=== PATIENT | female | born 1940 | race Caucasian/White ===

== ENCOUNTER 2016-12-17 08:19 | Inpatient (IN) | payer MEDICARE ==
[~2016-12-17] VITALS: Ht 162.6 cm; Wt 79.2 kg
[2016-12-17] MEDS ORDERED: LEVO100T5 PO (09:06)
[2016-12-17] MEDS ORDERED: VITA200012 PO (09:06)
[2016-12-17] MEDS ORDERED: BUPR150T3 PO (09:06)
[2016-12-17] MEDS ORDERED: SIMV10TA PO (09:06)
[2016-12-17] MEDS ORDERED: ALEN1TAB48 PO (09:06)
[2016-12-17] MEDS ORDERED: CALCTAB54 PO (09:06)
[2016-12-17] MEDS ORDERED: FISH100020 PO (09:06)
--- NOTE | 2016-12-23 09:40 | MH ---
cc: Bird BE M.D. DATE OF ADMISSION: 12/24/2016 ADMITTING DIAGNOSIS Osteoarthritic degeneration left knee, now being admitted for left total knee arthroplasty. HISTORY OF PRESENT ILLNESS This pleasant 76-year-old female is being admitted today for osteoarthritic degeneration left knee, now scheduled for left total knee arthroplasty. PAST MEDICAL HISTORY 1. Right total knee done in the past. 2. Arthritis. 3. Thyroid problems. MEDICATIONS Current medications include: 1. Levoxyl. 2. Bupropion. 3. Simvastatin. 4. Alendronate. 5. Vitamin-D3. PAST SURGICAL HISTORY Right total knee arthroplasty. REVIEW OF SYSTEMS Noncontributory. FAMILY HISTORY Noncontributory. SOCIAL HISTORY She does not smoke. She drinks some alcohol. ALLERGIES SULFA MEDICATIONS. PHYSICAL EXAMINATION GENERAL: We find a 76-year-old female well-developed, well-nourished, oriented x3 complaining of pain in the left knee. VITAL SIGNS: Blood pressure 136/82, pulse 65 and regular, respirations 16, temperature 97.7, pulse oximetry 98% on room air. HEENT: PERRLA. EOMI. Ears, nose and mouth clear. NECK: Supple. LUNGS: Clear. HEART: Regular rate. ABDOMEN: Soft. Positive bowel sounds. Nontender. EXTREMITIES: The left knee has crepitance on range of motion. She lacks 5 degrees short of full extension, has 90 degrees of flexion. She is neurovascularly intact to her toes. IMPRESSION The impression at this time is severe osteoarthritic degeneration left knee. PLAN The plan is admission for left total knee arthroplasty today. The patient was given a prescription for postoperative pain and anticoagulation control in the office. She plans on going home with home health care after stay in the hospital. She understands to use Hibiclens scrub and Bactroban preoperatively. JMD JEANNA Causey/RENARD /9:25 AM /9:29 AM
[2016-12-24] MEDS: CHLORHEXIDINE GLUCONATE 4% SOLN 120 ML BTL TOP SCH (06:00)
[2016-12-24] MEDS ORDERED: VANCOMYCIN 1000 MG/NS 250 ML (for <70 kg) IV SCH ×2 (06:00)
[2016-12-24 06:07] VITALS: BP 155/77; PULSE 67; RESP 20; TEMP 97.9; O2SAT 96
[2016-12-24] MEDS ORDERED: ceFAZolin 2 GM PREMIX 50 ML IV SCH (07:00)
[2016-12-24] MEDS ORDERED: ceFAZolin INJ 1,000 MG VIAL ONE (07:00)
[2016-12-24] MEDS ORDERED: MIDAZOLAM HCL 5 MG/5 ML VIAL ONE (07:06)
[2016-12-24] MEDS: BUPIVACAINE LIPOSO PF 1.3% INJ 20 ML, BUPIVACAINE PF 0.25% INJ 20 ML in SODIUM CHLORIDE... P-ARTICULR SCH ×2 (07:45→08:58)
[2016-12-24] MEDS ORDERED: ACETAMINOPHEN 1000 MG/100 ML VIAL IV ONE (07:54)
[2016-12-24] MEDS ORDERED: fentaNYL CITRATE 250 MCG/5 ML AMP ONE (07:54)
[2016-12-24] MEDS ORDERED: ONDANSETRON HCL 4 MG/2 ML VIAL ONE (07:54)
[2016-12-24] MEDS ORDERED: diphenhydrAMINE HCL 50 MG/ML VIAL ONE (07:55)
[2016-12-24] MEDS: SODIUM CHLORIDE 0.9% IV SCH ×2 (08:00→08:59)
[2016-12-24] MEDS: TRANEXAMIC ACID IV SCH ×2 (08:00→08:59)
--- NOTE | 2016-12-24 08:23 | HHI.FF ---
Face to Face Verification Diagnosis: (1) Status post total left knee replacement Physical Therapy Gait training Knee: Total knee, Protocol: Left, Gait training, Full weight bearing Canvas Knee Splint: When in bed & 2 pillows btw thighs Nursing RN: 3 days/week x 2 weeks Nursing: Tor teaching, Dressing changes Dressing Changes: Daily dressing change, 4x4s, Gauze, Paper tape I have seen patient Dorothy Drew on 12/24/16. My clinical findings support the need for the requested home health care services because: Limited ability to care for self High risk of falls I certify that my clinical findings support that this patient is homebound because: Unsteady gait/balance Bird Woody MD Dec 24, 2016 08:23
[2016-12-24] MEDS ORDERED: CPMMACHINE (08:24)
[2016-12-24] MEDS ORDERED: diphenhydrAMINE HCL 50 MG/ML VIAL IV PRN (08:30)
[2016-12-24] MEDS ORDERED: TRANEXAMIC ACID INJ 0 MG in SODIUM CHLORIDE 0.9% INJ 100 ML IV SCH (08:30)
[2016-12-24] MEDS ORDERED: Post-op Orders (for Pharmacy) MISC XX ONE (08:30)
[2016-12-24] MEDS ORDERED: ONDANSETRON HCL 4 MG/2 ML VIAL IVP PRN (08:30)
[2016-12-24] MEDS ORDERED: ACETAMINOPHEN 325 MG TAB PO PRN (08:30)
[2016-12-24] MEDS ORDERED: MORPHINE SULFATE 30 MG/30 ML PCA IV SCH (08:30)
[2016-12-24] MEDS ORDERED: TEMAZEPAM 15 MG CAP PO PRN (08:30)
[2016-12-24] MEDS ORDERED: SODIUM CHLORIDE 0.9% FLUSH 5 ML FLUSH IVF PRN (08:30)
[2016-12-24] MEDS ORDERED: ACETAMINOPHEN/HYDROcodone 325 MG/7.5 MG TAB PO PRN (08:30)
[2016-12-24] MEDS ORDERED: NALOXONE HCL 0.4 MG/ML AMP IV PRN (08:30)
[2016-12-24] MEDS ORDERED: DEXAMETHASONE SOD PHOS PF 10 MG/ML VIAL IV ONE (08:54)
[2016-12-24] MEDS ORDERED: ROPIVACAINE 0.5% PF INJ 30 ML VIAL NB ONE (08:54)
[2016-12-24] MEDS: CHOLECALCIFEROL (VIT D3) 1000 UNIT TAB PO SCH (09:00)
[2016-12-24] MEDS ORDERED: NON-FORMULARY DRUG (Omega-3 Fatty Acids (Fish Oil 1000 mg) 1 CAP) PO SCH (09:00)
[2016-12-24] MEDS: SODIUM CHLORIDE 0.9% FLUSH 5 ML FLUSH IVF SCH ×2 (09:00→20:19)
[2016-12-24] MEDS: LEVOTHYROXINE SODIUM 88 MCG TAB PO SCH (09:00)
[2016-12-24] MEDS: CALCIUM/VITAMIN D 250 MG/125 U TAB PO SCH ×2 (10:45→20:19)
[2016-12-24] MEDS ORDERED: TRANEXAMIC ACID IV SCH (11:00)
[2016-12-24] MEDS ORDERED: SODIUM CHLORIDE 0.9% IV SCH (11:00)
[2016-12-24] MEDS: LACTATED RINGER'S 1000 ML INJ 1,000 ML IV SCH ×2 (11:30→23:50)
[2016-12-24] MEDS ORDERED: DO NOT ADM ANY ANTICOAGULANT DRUGS XX PRN (11:45)
[2016-12-24] MEDS ORDERED: PROPOFOL 200 MG/20 ML AMP IV ONE (12:00)
--- NOTE | 2016-12-24 12:05 | RADRPT ---
EXAM DATE/TIME: 12/24/2016 11:31 [place] COMPARISON: No previous studies available for comparison. INDICATIONS : Post left knee arthroplasty MEDICAL HISTORY : Arthritis. SURGICAL HISTORY : Total knee replacement, right. ENCOUNTER: Initial ACUITY: 1 day PAIN SCORE: Non-responsive. LOCATION: Left Knee FINDINGS: The patient is status post left total knee replacement. The prosthesis appears to be in good positio n. There is no fracture or dislocation. CONCLUSION: 1. Status post left total knee replacement with prosthesis in good position. 2. No acute fracture or dislocation. Leo Giles MD on December 24, 2016 at 11:52 Board Certified Radiologist. This report was verified electronically.
--- NOTE | 2016-12-24 12:09 | PD.CONS ---
HPI Service [facility] Hospitalists Consult Requested By Dr. Ad Woody Reason for Consult Medical Management Primary Care Physician Rafaela Nicolas MD Diagnoses: History of Present Illness Mrs. Drew is a 76 y/o female with osteoarthritis, hyperlipidemia, hypothyroidism, and CKD stage 3. She was admitted to [facility] on 12/24/16 for elective left total knee arthroplasty with Dr. Woody. [facility] Hospitalist team was consulted to help with managing the pt chronic medical issues. The pt is seem post-operatively. Review of Systems Constitutional: DENIES: Fever, Chills Respiratory: DENIES: Cough, Shortness of breath Cardiovascular: DENIES: Chest pain, Dyspnea on Exertion Gastrointestinal: DENIES: Abdominal pain, Nausea, Vomiting Musculoskeletal: COMPLAINS OF: Joint pain Integumentary: DENIES: Rash Neurologic: DENIES: Headache Past Family Social History Past Medical History Osteoarthritis CKD, stage 3 Hyperlipidemia Hypothyroidism Depression Vitamin D deficiency Past Surgical History Right knee arthroplasty in 2013 D&C Reported Medications Calcium 500 (Frucpqe-Rvnaqbphb-Ovcgwuf D) 500-250-200 Mg-Mg-Unit Tab 1 Tab PO BID Fish Oil 1000 mg (Johnson-3 Fatty Acids) 1 Cap Cap 1 Cap PO DAILY Alendronate (Alendronate Sodium) 70 Mg Tab 70 Mg PO WEEKLY PT TAKES ON WEDNESDAY Vitamin D3 (Cholecalciferol) 2,000 Unit Tab 2,000 Units PO DAILY Simvastatin 10 Mg Tab 10 Mg PO MO,WE,FR,SUN Bupropion HCl ER 24 HR (Bupropion HCl) 150 Mg Tab 150 Mg PO DAILY Levothyroxine (Levothyroxine Sodium) 100 Mcg Tab 88 Mcg PO DAILY Allergies: Coded Allergies: Sulfa (Verified Allergy, Severe, HIVES, 12/17/16) Family History Father with hx of CHF and prostate cancer Mother with hx of COPD Social History Occasional alcohol use, 2 glasses of wine per week Hx of tobacco use, smoke 1ppd x 20 years quit in 2006 Denies any illicit drug use Physical Exam Vital Signs Vital Signs Date Time Temp Pulse Resp B/P Pulse Ox O2 Delivery O2 Flow Rate FiO2 12/24/16 11:45 14 12/24/16 06:07 97.9 67 20 155/77 96 Physical Exam GENERAL: This is a well-nourished, well-developed patient, in no apparent distress. HEENT: Atraumatic. Normocephalic. No temporal or scalp tenderness. No scleral icterus. Airway patent. NECK: Trachea midline, supple, nontender. CARDIO: Regular RESP: CTA bilaterally. No wheezes, rales, or rhonchi. ABD: +BS, soft, non-tender, nondistended. EXT: Left knee bandages are c/d/i NEURO: Awake and alert. Motor and sensory grossly within normal limits. Normal speech. Laboratory Laboratory Tests Test 12/24/16 12/24/16 06:00 09:02 Blood Type O POSITIVE Antibody Screen POSITIVE Crossmatch Leukocyte-Reduced Red Blood Cells Blood Bank Comment Antibody Identification Non-Specific Agglutinin Assessment and Plan Problem List: (1) Status post total left knee replacement Status: Acute Plan: - Pt s/p left total knee arthroplasty on 12/24/[address] Woody - Post-op pain control per Ortho - PT daily - IS - Constipation precautions - DVT prophylaxis with Lovenox (2) Hypothyroidism Status: Chronic Plan: - Cont. home meds (3) CKD (chronic kidney disease) stage 3, GFR 30-59 ml/min Status: Chronic Plan: - Monitor labs (4) Hyperlipidemia Status: Chronic Plan: - Cont. home meds Assessment and Plan Patient examined. Assessment and plan formulated with Willow Justin PA-C. I agree with the above. Willow Justin Dec 24, 2016 12:09 Ad Felder MD Dec 24, 2016 19:19
[2016-12-24] MEDS: PCA - TOTAL MG MORPHINE DELIVERED PER SHIFT SCH ×2 (14:00→22:38)
[2016-12-24 16:00] VITALS: BP 109/56; PULSE 63; RESP 18; TEMP 97.1; O2SAT 98
[2016-12-24 20:20] VITALS: BP 107/63; PULSE 67; RESP 17; TEMP 98.5; O2SAT 99
[2016-12-25] VITALS (7 sets, daily range): BP systolic 106–153; BP diastolic 51–74; PULSE 70–84; RESP 16–17; TEMP 98–99.9; O2SAT 94–98
[2016-12-25] MEDS: CHLORHEXIDINE GLUCONATE 4% SOLN 120 ML BTL TOP SCH ×2 (02:23→21:55)
[2016-12-25] MEDS: PCA - TOTAL MG MORPHINE DELIVERED PER SHIFT SCH (05:32)
[2016-12-25 06:00] LABS: HEMATOCRIT 28.5 % (35.0-46.0); REVIEW FLAG FINAL
[2016-12-25] MEDS: SODIUM CHLORIDE 0.9% FLUSH 5 ML FLUSH IVF SCH ×2 (09:00→19:37)
[2016-12-25] MEDS: ACETAMINOPHEN/HYDROcodone 325 MG/7.5 MG TAB PO PRN ×2 (09:01→19:37)
[2016-12-25] MEDS: CALCIUM/VITAMIN D 250 MG/125 U TAB PO SCH ×2 (09:01→19:37)
[2016-12-25] MEDS: CHOLECALCIFEROL (VIT D3) 1000 UNIT TAB PO SCH (09:01)
[2016-12-25] MEDS: LEVOTHYROXINE SODIUM 88 MCG TAB PO SCH (09:01)
[2016-12-25] MEDS: PRAVASTATIN SOD 20 MG TAB PO SCH (09:02)
[2016-12-25] MEDS: buPROPion HCL 150 MG SUSTAINED RELEASE TAB PO SCH (09:02)
[2016-12-25] MEDS: LACTATED RINGER'S 1000 ML INJ 1,000 ML IV SCH ×2 (09:04→19:37)
[2016-12-25] MEDS: ENOXAPARIN SODIUM 30 MG/0.3 ML SYRINGE SQ SCH ×2 (10:22→21:54)
--- NOTE | 2016-12-25 11:27 | PD.ORT.PN ---
Subjective Subjective Remarks pt having some pain in knee today. Objective Vitals Vital Signs Date Time Temp Pulse Resp B/P Pulse Ox O2 Delivery O2 Flow Rate FiO2 12/25/16 09:26 94 21 12/25/16 08:12 99.3 74 16 153/70 95 12/25/16 05:32 18 12/25/16 04:25 98.0 71 17 106/53 98 12/25/16 00:25 98.0 74 17 109/51 98 12/24/16 22:38 17 12/24/16 20:20 98.5 67 17 107/63 99 12/24/16 16:00 97.1 63 18 109/56 98 12/24/16 13:45 98.2 63 16 135/73 98 Nasal Cannula 2 12/24/16 13:00 60 16 126/73 98 Nasal Cannula 2 12/24/16 12:45 59 16 132/82 98 Nasal Cannula 2 12/24/16 12:30 59 16 135/76 98 Nasal Cannula 2 12/24/16 12:15 58 16 136/75 98 Nasal Cannula 2 12/24/16 12:00 61 16 129/76 97 Nasal Cannula 2 12/24/16 11:45 14 12/24/16 11:45 60 16 138/76 97 Nasal Cannula 2 12/24/16 11:30 62 16 145/78 92 Nasal Cannula 2 I/O 12/24/16 12/24/16 12/24/16 12/25/16 12/25/16 12/25/16 07:00 15:00 23:00 07:00 15:00 23:00 Intake Total 2485 ml 852 ml 755 ml Output Total 850 ml Balance 1635 ml 852 ml 755 ml Intake Oral 960 ml 120 ml 120 ml IV Total 525 ml 732 ml 635 ml Other 1000 ml Output Urine Total 700 ml Estimated Blood Loss 150 ml # Voids 2 1 1 # Bowel Movements 0 0 Result Diagram: 12/25/16 0500 Objective Remarks Dressing dry and intact. NV intact to toes. No calf tenderness. Assessment & Plan Ortho Post Op Day #: 1 Problem List: Assessment and Plan PT,OOB, DC RN ENT today. Plan dc to SNF on Sun. Bird Woody MD Dec 25, 2016 11:27
[2016-12-25] MEDS ORDERED: HYDR-3580 PO (11:30)
[2016-12-25] MEDS ORDERED: POLYETHYLENE GLYCOL 17 GM PKG PO PRN (11:30)
[2016-12-25] MEDS ORDERED: MAGNESIUM HYDROXIDE SUSP 30 ML CUP PO ONE (11:30)
[2016-12-25] MEDS: DOCUSATE SODIUM 100 MG CAP PO SCH (19:36)
[2016-12-25] MEDS: MULTIVITAMINS/MINERALS THERAPEUTIC TAB PO SCH (19:37)
[2016-12-26 00:10] VITALS: BP 121/57; PULSE 85; RESP 17; TEMP 100.1; O2SAT 95
[2016-12-26] MEDS: ACETAMINOPHEN/HYDROcodone 325 MG/7.5 MG TAB PO PRN ×4 (02:56→22:23)
[2016-12-26 04:15] VITALS: BP 132/53; PULSE 92; RESP 17; TEMP 99.6; O2SAT 97
[2016-12-26 05:00] LABS: HEMATOCRIT 27.8 % (35.0-46.0); REVIEW FLAG FINAL
[2016-12-26] MEDS: diphenhydrAMINE HCL 25 MG CAP PO PRN ×2 (05:41→12:54)
[2016-12-26 08:00] VITALS: BP 135/65; PULSE 85; RESP 18; TEMP 97.6; O2SAT 94
[2016-12-26] MEDS: DOCUSATE SODIUM 100 MG CAP PO SCH ×2 (08:26→19:26)
[2016-12-26] MEDS: MULTIVITAMINS/MINERALS THERAPEUTIC TAB PO SCH ×2 (08:26→19:26)
[2016-12-26] MEDS: SODIUM CHLORIDE 0.9% FLUSH 5 ML FLUSH IVF SCH ×2 (08:26→19:26)
[2016-12-26] MEDS: ENOXAPARIN SODIUM 30 MG/0.3 ML SYRINGE SQ SCH ×2 (08:26→22:23)
[2016-12-26] MEDS: buPROPion HCL 150 MG SUSTAINED RELEASE TAB PO SCH (08:27)
[2016-12-26] MEDS: CHOLECALCIFEROL (VIT D3) 1000 UNIT TAB PO SCH (08:27)
[2016-12-26] MEDS: LEVOTHYROXINE SODIUM 88 MCG TAB PO SCH (08:28)
[2016-12-26] MEDS: CALCIUM/VITAMIN D 250 MG/125 U TAB PO SCH ×2 (08:28→19:26)
[2016-12-26] MEDS ORDERED: BACITRACIN OINT 0.9 GM PKT TOP PRN (10:15)
[2016-12-26] MEDS: LACTATED RINGER'S 1000 ML INJ 1,000 ML IV SCH (10:18)
[2016-12-26 12:00] VITALS: BP 142/66; PULSE 80; RESP 16; TEMP 98.3; O2SAT 95
--- NOTE | 2016-12-26 12:57 | PD.ORT.PN ---
Subjective Post Op Day #: 2 Pain Scale: 3-4 Subjective Remarks Resting in bed; family and friends at bedside No Nausea and vomiting; tolerating food well pain controlled C/O itching; generalized, wanted additional Benadryl CPM actively going 0-60 degree Objective Vitals Vital Signs Date Time Temp Pulse Resp B/P Pulse Ox O2 Delivery O2 Flow Rate FiO2 12/26/16 08:00 97.6 85 18 135/65 94 12/26/16 04:15 99.6 92 17 132/53 97 12/26/16 00:10 100.1 85 17 121/57 95 12/25/16 20:15 99.9 84 17 145/53 94 12/25/16 16:35 98.2 70 16 140/74 98 I/O 12/25/16 12/25/16 12/25/16 12/26/16 12/26/16 12/26/16 07:00 15:00 23:00 07:00 15:00 23:00 Intake Total 755 ml 980 ml 240 ml 240 ml Output Total 4 ml Balance 755 ml 976 ml 240 ml 240 ml Intake Oral 120 ml 980 ml 240 ml 240 ml IV Total 635 ml Output Urine Total 4 ml # Voids 1 2 # Bowel Movements 0 0 Result Diagram: 12/26/16 0404 Objective Remarks Respiratory effect: within normal limits Dressing dry and intact. NV intact to toes. No calf tenderness. Assessment & Plan Assessment and Plan PT,OOB, DVT prophylaxis with Lovenox Plan dc to SNF on Sun. Dang Ha Dec 26, 2016 12:57
[2016-12-26 16:00] VITALS: BP 139/63; PULSE 78; RESP 17; TEMP 98.6; O2SAT 96
[2016-12-26 20:49] VITALS: BP 111/48; PULSE 90; RESP 16; TEMP 100.1; O2SAT 93
[2016-12-27 00:01] VITALS: BP 143/77; PULSE 85; RESP 18; TEMP 99.3; O2SAT 94
[2016-12-27] MEDS: ACETAMINOPHEN/HYDROcodone 325 MG/7.5 MG TAB PO PRN ×3 (04:45→13:31)
[2016-12-27] MEDS ORDERED: MAGNESIUM HYDROXIDE SUSP 30 ML CUP PO PRN (05:30)
[2016-12-27] MEDS ORDERED: BISACODYL 10 MG SUPP RECTAL PRN (05:45)
[2016-12-27 08:00] VITALS: BP 116/66; PULSE 79; RESP 18; TEMP 98.7; O2SAT 94
[2016-12-27] MEDS: DOCUSATE SODIUM 100 MG CAP PO SCH (08:36)
[2016-12-27] MEDS: MULTIVITAMINS/MINERALS THERAPEUTIC TAB PO SCH (08:36)
[2016-12-27] MEDS: CALCIUM/VITAMIN D 250 MG/125 U TAB PO SCH (08:36)
[2016-12-27] MEDS: LEVOTHYROXINE SODIUM 88 MCG TAB PO SCH (08:36)
[2016-12-27] MEDS: buPROPion HCL 150 MG SUSTAINED RELEASE TAB PO SCH (08:36)
[2016-12-27] MEDS: CHOLECALCIFEROL (VIT D3) 1000 UNIT TAB PO SCH (08:36)
[2016-12-27] MEDS: SODIUM CHLORIDE 0.9% FLUSH 5 ML FLUSH IVF SCH (08:39)
[2016-12-27] MEDS: ENOXAPARIN SODIUM 30 MG/0.3 ML SYRINGE SQ SCH (08:39)
[2016-12-27] MEDS: diphenhydrAMINE HCL 25 MG CAP PO PRN ×2 (08:48→15:05)
[2016-12-27] MEDS: PRAVASTATIN SOD 20 MG TAB PO SCH (08:48)
[2016-12-27] MEDS: LACTATED RINGER'S 1000 ML INJ 1,000 ML IV SCH (11:18)
[2016-12-27 12:00] VITALS: BP 140/75; PULSE 84; RESP 18; TEMP 97.8; O2SAT 98
--- NOTE | 2016-12-27 13:32 | PD.ORT.PN ---
Subjective Subjective Remarks pt comfortable today. Objective Vitals Vital Signs Date Time Temp Pulse Resp B/P Pulse Ox O2 Delivery O2 Flow Rate FiO2 12/27/16 12:00 97.8 84 18 140/75 98 12/27/16 08:00 98.7 79 18 116/66 94 12/27/16 00:01 99.3 85 18 143/77 94 12/26/16 20:49 100.1 90 16 111/48 93 12/26/16 16:00 98.6 78 17 139/63 96 I/O 12/26/16 12/26/16 12/26/16 12/27/16 12/27/16 12/27/16 07:00 15:00 23:00 07:00 15:00 23:00 Intake Total 240 ml 720 ml Output Total 800 ml Balance 240 ml -80 ml Intake Oral 240 ml 720 ml Output Urine Total 800 ml # Voids 3 5 # Bowel Movements 0 Result Diagram: 12/26/16 0404 Objective Remarks Dressing dry and intact. No calf tenderness. Assessment & Plan Ortho Post Op Day #: 3 Problem List: Assessment and Plan PT,OOB, DVT prophylaxis with Lovenox Plan dc to SNF today. Bird Woody MD Dec 27, 2016 13:32
--- NOTE | 2016-12-27 13:36 | HHI.DS ---
Discharge Summary Admission Date Dec 24, 2016 at 05:21 Discharge Date: Dec 27, 2016 Admitting Diagnosis Osteoarthritic degeneration left knee Diagnosis: (1) Total knee replacement status Diagnosis: Principal Brief History This is a 76 year old female patient CBC/BMP: 12/26/16 0404 Significant Findings Laboratory Tests Test 12/25/16 12/26/16 05:00 04:04 Hemoglobin 9.7 GM/DL 9.4 GM/DL (11.6-15.3) (11.6-15.3) Hematocrit 28.5 % 27.8 % (35.0-46.0) (35.0-46.0) PE at Discharge Dressing dry and intact. No calf tenderness. Hospital Course Patient was admitted to the hospital on December 24, 2016 at which time she underwent a left total knee arthroplasty. She received a course of prophylactic IV antibiotics and was started on anticoagulation therapy 23 hours after surgery. She continued to improve began out of bed tolerating food and fluids well. She received daily wound care and physical therapy. She remained afebrile with vital signs stable and she remained neurovascularly intact. She was discharged to half-way facility on postoperative day 3 in good condition with instructions for follow-up care in the office. She was discharged with postoperative pain control and instructions to continue anticoagulation therapy. Pt Condition on Discharge: Good Discharge Disposition: Discharge to SNF Discharge Instructions Diet Instructions: Heart Healthy Diet Activities You Can Perform: Full Weight Bearing, Shower Only-No Bath Activities to Avoid: Bathing, Driving Bird Woody MD Dec 27, 2016 13:36
--- NOTE | 2016-12-28 10:15 | MP ---
cc: Bird WOODY M.D. DATE OF SURGERY December 24, 2016 PREOPERATIVE DIAGNOSIS Osteoarthritic degeneration left knee. POSTOPERATIVE DIAGNOSIS Osteoarthritic degeneration left knee. SURGERY PERFORMED Left total knee arthroplasty using consensus components size 4 femur, 1 tibia, with a 12 mm insert and a size 3 patella, 10 mm thickness with two batches of cobalt blue cement. SURGEON Dr. Woody HOUSE SERVANT LESLEY Salazar ANESTHESIA Spinal. PROCEDURE After successful induction of anesthesia, the patient is placed on the operating room table in the supine position. The knee is prepped and draped in the usual manner. A tourniquet is inflated at the upper thigh and set to 300 mmHg pressure after exsanguination of the lower extremity. A longitudinal incision is made extending from 3 inches proximal to the superior pole of the patella, across the patella in longitudinal fashion, and down past the insertion of the tibial tubercle into the proximal tibia. The incision is carried down through subcutaneous tissue along the medial aspect of the patella and retinaculum, down through the capsule to expose the knee joint. The patella and patellar tendon are freed up enough to allow the patella to be inverted and retracted off the lateral side of the knee joint. The knee joint is left exposed. Small osteophytes are removed. All soft tissue is removed to allow proper position of the femoral and tibial cutting jig guide. The first femoral jig is then inserted along the distal end of the femur after first measuring to decide whether this is a small, medium, or large component. The notch is then drilled and the tibial cutting guide inserted into the femoral cutting guide, along with the ankle brace to allow for proper measurement of the tibial cutting surface that needed to be resected. Pins are inserted into the tibial cutting jig and femoral cutting jig to hold them in place. An oscillating saw is then used to resect the surface of the tibia. The surface of the tibia is then completely removed using sharp and blunt dissection. The anterior and posterior cuts of the femur are then made as well using an oscillating saw through the cutting guide. All guides are then removed and the varus/valgus angulation cutting guide applied to the femur for proper measurement of the proper amount of valgus. The anterior cutting guide for the femur is then inserted at the anterior femoral cuts made. Next, the first block trial is inserted into the femur to allow for proper condyle drill holes to be made which are then made followed by removal of the bone between the condyles using an oscillating saw as well as the bone removed at the most posterior surface of the condyle. After this, this guide is removed and the chamfer cuts made using the chamfer cutting guide from both anterior and posterior. Next, the femoral trial is then inserted, the tibial surface reflected anterior to expose the tibial surface and a tibial stem guide is inserted after first measuring for a standard, standard plus, large, or large plus surface to be used. After the stem is impacted the trial tibial surface is applied followed by the trial meniscal components. After full range of motion is found with the appropriate length meniscal components varying the patella is prepared by resecting the posterior aspect of the patella using an oscillating saw, inserting a trial. The trial is then removed and the cruciate cutting guide applied using the bur to cut the cruciate cuts. After cruciate cuts are made all trials are removed. The wound is irrigated copiously with antibiotic solution and Water Pik and the actual components inserted into place using aforementioned components. After the cement has hardened and the components are found to have full range of motion with no instability, the tourniquet is deflated, total tourniquet time being 58 minutes at 300 mmHg pressure. The wound again is irrigated copiously with antibiotic solution, meticulous hemostasis achieved. Two Autovac tubes inserted, followed by closure of the deep fascia with both running and interrupted #1 Vicryl suture, subcutaneous tissue approximated using interrupted 2-0 Vicryl sutures, and skin approximated with atilio. Wet and dry dressing is applied to the wound followed by Xeroform gauze, sterile dressing and knee immobilizer. The patient tolerated the procedure well and left the Operating Room in satisfactory condition. ESTIMATED BLOOD LOSS 200 cc. COUNTS Sponge and suture counts were correct. COMPONENTS The components used were the aforementioned components. Tourniquet deflated. Total tourniquet time being 58 minutes at 300 mmHg pressure. 60 mL of Exparel used around the knee and for extra pain control and 1 gram of Perfecto for extra hemostasis. Estimated blood loss 200 mL. No drain utilized. Sponge and suture count correct. The patient tolerated the procedure well and left the operating room in satisfactory condition. J. MD JEANNA Howell/KK /10:49 AM /10:11 AM
== END 2016-12-27 15:33 | DRG 470 ==
LOC: HSDI 12-24 05:21 → N06B 12-24 14:01
PROVIDERS: ADMIT Surgery; ATTEND Surgery
PROC: 0SRD0J9 Replacement of Left Knee Joint with Synthetic Substitute, Cemented, Open Approach (ICD-10-PCS; principal; 2016-12-24 08:05)
DX: M17.12 Unilateral primary osteoarthritis, left knee (principal); N18.3 Chronic kidney disease, stage 3 (moderate); E55.9 Vitamin D deficiency, unspecified; E03.9 Hypothyroidism, unspecified; E78.5 Hyperlipidemia, unspecified; Z87.891 Personal history of nicotine dependence
CPT/HCPCS: 73560; 85014; 85018; 86077; 86850; 86870; 86900; 86901; 86920; 86922; 94150; C1776; C9290; J0131; J0690; J1100; J1200; J1650; J2250; J2270; J2405; J2795; J3010; J3370; J7050; J7120; L1830

== ENCOUNTER → 2016-12-17 | Outpatient (CLI) | payer MEDICARE ==
[~2016-12-17] MED LIST: ALEN1TAB48 PO; BUPR150T3 PO; CALC500T42 PO; CALCTAB54 PO; CPMMACHINE; ENOX30P SQ; FISH1000 PO; FISH100020 PO; HYDR-3580 PO; LEVO100T4 PO; LEVO100T5 PO; SIMV10TA PO; VITA200012 PO
[2016-12-17 09:09] LABS: HEMATOCRIT 39.5 % (35.0-46.0); MEAN CELL VOLUME 94.3 FL (80.0-100.0); MEAN CORPUSCULAR HEMOGLOBIN 32.4 PG (27.0-34.0); MEAN CORPUSCULAR HGB CONC 34.3 % (32.0-36.0); PLATELET COUNT 229 TH/MM3 (150-450); RED BLOOD COUNT 4.19 MIL/MM3 (4.00-5.30); RED CELL DISTRIBUTION WIDTH 13.2 % (11.6-17.2); REVIEW FLAG FINAL; WHITE BLOOD COUNT 5.6 TH/MM3 (4.0-11.0)
[2016-12-17 09:10] LABS: APTT (PATIENT) 24.7 SEC (24.3-30.1); PROTHROMBIN TIME - PATIENT 11.5 SEC (9.8-11.6)
[2016-12-17 09:14] LABS: BLOOD, URINE MOD (NEG); GLUCOSE,URINE NEG (NEG); KETONE, URINE NEG (NEG); NITRITE,URINE NEG (NEG); PH, URINE 6.5 (5.0-8.5); SQUAMOUS EPITHELIAL CELL URINE <1 /hpf (0-5); URINE COLOR YELLOW (YELLW/STRAW)
[2016-12-17 09:18] LABS: COMMENT (UR) CATH-CULT NOT IND; CULTURE IF INDICATED CATH CULTURE NOT IND
[2016-12-17 09:32] LABS: ALKALINE PHOSPHATASE 59 U/L (45-117); ALT (GPT) 19 U/L (10-53); ANION GAP 8 MEQ/L (5-15); AST (GOT) 21 U/L (15-37); BICARBONATE 29.8 MEQ/L (21.0-32.0); BLOOD UREA NITROGEN 19 MG/DL (7-18); CHLORIDE 105 MEQ/L (98-107); GLOMERULAR FILTRATION RATE 50 ML/MIN (>89); GLUCOSE,FASTING 90 MG/DL (74-99); POTASSIUM 3.8 MEQ/L (3.5-5.1); SODIUM (NA) 143 MEQ/L (136-145); TOTAL BILIRUBIN ADULT 0.7 MG/DL (0.2-1.0)
--- NOTE | 2016-12-17 13:46 | EKG ---
Date Performed: 12/17/2016 Time Performed: 08:37:00 PTAGE: 76 years EKG: SINUS BRADYCARDIA RIGHT BUNDLE BRANCH BLOCK ABNORMAL ECG NO PREVIOUS TRACING DOCTOR: Vince Alberto Interpretating Date/Time 12/17/2016 13:44:06
== END ==
LOC: CPRE 08:03
PROVIDERS: ATTEND Surgery
DX: Z01.810 Encounter for preprocedural cardiovascular examination (principal); Z01.812 Encounter for preprocedural laboratory examination
CPT/HCPCS: 36415; 80053; 81001; 85027; 85610; 85730; 93005